=== PATIENT | male | born 1975 | race Caucasian/White ===

== ENCOUNTER 2024-12-26 13:33 | Inpatient (IN) | payer SELFPAY ==
[~2024-12-26 13:33] MED LIST: Iopamidol 370 76% 100 ML VIAL ONE
[2024-12-26] MEDS ORDERED: Heparin 10,000 UNITS/ 10 ML VIAL ONE (14:04)
[2024-12-26] MEDS ORDERED: TICAGRELOR 90 MG TABLET ONE (15:23)
[2024-12-26] MEDS: TICAGRELOR 90 MG TABLET PO SCH (21:25)
[2024-12-26] MEDS: PNEUMOC 20-VAL CONJ-DIP CRM/PF 0.5 ML SYRINGE IM ONE (21:25)
[2024-12-26] MEDS: Enoxaparin 100 MG (1 mL) SYRINGE SC SCH (21:25)
[2024-12-26] MEDS: FLU (Fluarix Triv) 25-26 (6MOS UP)/PF 45 MCG/0.5 ML Syringe IM ONE (21:28)
[2024-12-26] MEDS: Ondansetron PF 4 MG/2 ML Vial IVP PRN (21:35)
[2024-12-27 03:35] LABS: #Basophils 0.05 10x3/uL (0.0-0.2); #Eosinophils 0.03 10x3/uL (0.0-0.7); #Monocytes 1.24 10x3/uL (0.11-0.59); #Neutrophils 9.31 10x3/uL (1.40-6.50); %Basophils 0.4 % (0.0-1.0); %Eosinophils 0.2 % (0.0-10.0); %Lymphocytes 18.2 % (21.0-51.0); %Monocytes 9.5 % (0.0-10.0); %Neutrophils 71.3 % (42.0-75.0); Hematocrit 46.9 % (42.0-52.0); Hemoglobin 15.5 g/dL (14.0-18.0); Mean Corpuscular Hemoglobin 28.1 pg (27.0-31.0); Mean Corpuscular Volume 85.0 fL (78.0-98.0); Platelet Count 287 10x3/uL (130-400); Red Blood Cell (RBC) Count 5.52 mill/uL (4.70-6.10); White Blood Cell (WBC) Count 13.06 10x3/uL (4.8-10.8)
[2024-12-27 03:58] LABS: ALT (SGPT) 87 U/L (Less than 45); AST (SGOT) 572 U/L (11-34); Albumin 3.7 g/dL (3.1-4.5); Alkaline Phosphatase 74 U/L (40-110); Anion Gap 15 mmol/L (10-20); BUN (Urea Nitrogen) 17 mg/dL (8.9-20.6); Bilirubin, Total 0.9 mg/dL (0.3-1.2); Calc. Creatinine Clearance 122 mL/min (70-130); Calcium 9.3 mg/dL (7.8-10.44); Carbon Dioxide 23 mmol/L (22-29); Cardiac Risk 4.7 (Less than 4.5); Chloride 106 mmol/L (98-107); Cholesterol 185 mg/dl (< 200 Desired); Globulin 3.3 g/dL (2.4-3.5); Glucose 108 mg/dL (70-105); HDL Cholesterol 39 mg/dL (>60 Neg Risk); LDL Cholesterol, Calculated 126 mg/dL; Potassium 3.9 mmol/L (3.5-5.1); Sodium 140 mmol/L (136-145); Triglycerides 98 mg/dL (Less than 150)
[2024-12-27] MEDS: Nitroglycerin 0.4 MG TAB (25 Tab Bottle) SL PRN (04:59)
[2024-12-27 05:59] LABS: Magnesium 2.0 mg/dL (1.6-2.6)
[2024-12-27] MEDS ORDERED: Heparin 10,000 UNITS/ 10 ML VIAL SLOW IVP SCH ×2 (06:30)
[2024-12-27] MEDS: Aspirin 81 mg Enteric Coated Tablet PO SCH (10:21)
[2024-12-27] MEDS: Spironolactone 25 MG TAB PO SCH (10:21)
[2024-12-27] MEDS: Lisinopril 2.5 MG TAB PO SCH (14:26)
[2024-12-28 05:22] VITALS: BMI 34.9
[2024-12-28] MEDS: Amiodarone 150 MG, Admixture Fee 1 EACH in Dextrose 5% in Water 100 ML IVPB SCH (16:22)
[2024-12-29 03:57] LABS: #Basophils 0.03 10x3/uL (0.0-0.2); #Eosinophils 0.21 10x3/uL (0.0-0.7); #Monocytes 1.07 10x3/uL (0.11-0.59); #Neutrophils 6.16 10x3/uL (1.40-6.50); %Basophils 0.3 % (0.0-1.0); %Eosinophils 2.3 % (0.0-10.0); %Lymphocytes 17.9 % (21.0-51.0); %Monocytes 11.7 % (0.0-10.0); %Neutrophils 67.5 % (42.0-75.0); Hematocrit 40.7 % (42.0-52.0); Hemoglobin 13.6 g/dL (14.0-18.0); Mean Corpuscular Hemoglobin 28.4 pg (27.0-31.0); Mean Corpuscular Volume 85.0 fL (78.0-98.0); Platelet Count 216 10x3/uL (130-400); Red Blood Cell (RBC) Count 4.79 mill/uL (4.70-6.10); White Blood Cell (WBC) Count 9.14 10x3/uL (4.8-10.8)
[2024-12-29 04:17] LABS: Anion Gap 11 mmol/L (10-20); BUN (Urea Nitrogen) 12 mg/dL (8.9-20.6); Calc. Creatinine Clearance 153 mL/min (70-130); Calcium 8.5 mg/dL (7.8-10.44); Carbon Dioxide 23 mmol/L (22-29); Chloride 110 mmol/L (98-107); Glucose 77 mg/dL (70-105); Potassium 3.8 mmol/L (3.5-5.1); Sodium 140 mmol/L (136-145)
[2024-12-29 04:18] LABS: ALT (SGPT) 38 U/L (Less than 45); AST (SGOT) 108 U/L (11-34); Albumin 3.1 g/dL (3.1-4.5); Alkaline Phosphatase 76 U/L (40-110); Bilirubin, Direct 0.4 mg/dL (0.1-0.3); Bilirubin, Total 1.1 mg/dL (0.3-1.2)
[2024-12-30 10:47] LABS: Anion Gap 13 mmol/L (10-20); BUN (Urea Nitrogen) 12 mg/dL (8.9-20.6); Calc. Creatinine Clearance 136 mL/min (70-130); Calcium 8.9 mg/dL (7.8-10.44); Carbon Dioxide 21 mmol/L (22-29); Chloride 108 mmol/L (98-107); Glucose 93 mg/dL (70-105); Magnesium 1.9 mg/dL (1.6-2.6); Potassium 3.7 mmol/L (3.5-5.1); Sodium 138 mmol/L (136-145)
[2024-12-30] MEDS: Magnesium 2 GM/50 ML(in water) 2 GM in Premix 1 BAG IVPB SCH (15:34)
[2024-12-30] MEDS: Amiodarone 200 MG TAB PO SCH (20:13)
[2024-12-30] MEDS: Pantoprazole 40 MG DR.TAB PO SCH (20:13)
[2024-12-30] MEDS: Metoprolol Succinate XL 25 MG ER.TAB PO SCH (20:14)
[2024-12-31 05:03] LABS: #Basophils 0.04 10x3/uL (0.0-0.2); #Eosinophils 0.22 10x3/uL (0.0-0.7); #Monocytes 1.35 10x3/uL (0.11-0.59); #Neutrophils 7.64 10x3/uL (1.40-6.50); %Basophils 0.4 % (0.0-1.0); %Eosinophils 2.0 % (0.0-10.0); %Lymphocytes 14.0 % (21.0-51.0); %Monocytes 12.5 % (0.0-10.0); %Neutrophils 70.7 % (42.0-75.0); Hematocrit 42.5 % (42.0-52.0); Hemoglobin 14.3 g/dL (14.0-18.0); Mean Corpuscular Hemoglobin 28.9 pg (27.0-31.0); Mean Corpuscular Volume 86.0 fL (78.0-98.0); Platelet Count 238 10x3/uL (130-400); Red Blood Cell (RBC) Count 4.94 mill/uL (4.70-6.10); White Blood Cell (WBC) Count 10.80 10x3/uL (4.8-10.8)
[2024-12-31 05:25] LABS: ALT (SGPT) 43 U/L (Less than 45); AST (SGOT) 46 U/L (11-34); Albumin 3.5 g/dL (3.1-4.5); Alkaline Phosphatase 83 U/L (40-110); Anion Gap 17 mmol/L (10-20); BUN (Urea Nitrogen) 11 mg/dL (8.9-20.6); Bilirubin, Total 1.2 mg/dL (0.3-1.2); Calc. Creatinine Clearance 138 mL/min (70-130); Calcium 8.8 mg/dL (7.8-10.44); Carbon Dioxide 18 mmol/L (22-29); Chloride 107 mmol/L (98-107); Globulin 3.4 g/dL (2.4-3.5); Glucose 75 mg/dL (70-105); Magnesium 2.1 mg/dL (1.6-2.6); Potassium 3.9 mmol/L (3.5-5.1); Sodium 138 mmol/L (136-145)
[2024-12-31] MEDS: Metoprolol Succinate XL 25 MG ER.TAB PO SCH (08:07)
[2024-12-31] MEDS: Losartan 25 MG TAB PO SCH (08:07)
[2024-12-31] MEDS: Communication Order-Pharmacy FS SCH (21:20)
[2025-01-01 09:56] LABS: Anion Gap 15 mmol/L (10-20); BUN (Urea Nitrogen) 11 mg/dL (8.9-20.6); Calc. Creatinine Clearance 133 mL/min (70-130); Calcium 9.4 mg/dL (7.8-10.44); Carbon Dioxide 21 mmol/L (22-29); Chloride 106 mmol/L (98-107); Glucose 81 mg/dL (70-105); Potassium 4.0 mmol/L (3.5-5.1); Sodium 138 mmol/L (136-145)
[2025-01-01] MEDS ORDERED: Lidocaine 1% (PF) 30 ML VIAL ONE (09:59)
[2025-01-01] MEDS ORDERED: Nitroglycerin 50 MG/250 ML BOT 250 ML ONE (09:59)
[2025-01-01] MEDS ORDERED: Heparin 10,000 UNITS/ 10 ML VIAL ONE (09:59)
[2025-01-01] MEDS ORDERED: Ondansetron PF 4 MG/2 ML Vial ONE (11:20)
[2025-01-01] MEDS ORDERED: DOPamine 400 MG/D5W 250 ML 0 ML ONE (11:21)
[2025-01-01] MEDS ORDERED: Dextrose 50% Abboject 50 ML SYRINGE ONE (11:24)
[2025-01-01] MEDS ORDERED: Iopamidol 370 76% 100 ML VIAL ONE (13:49)
[2025-01-01 14:43] VITALS: BP 92/54; TEMP 98.4
[2025-01-01] MEDS ORDERED: Furosemide 40 MG (4 mL) VIAL SLOW IVP SCH (18:30)
[2025-01-01] MEDS ORDERED: EPINEPHrine 1 MG/10 ML Abboject SYRINGE ONE (18:33)
[2025-01-01] MEDS ORDERED: Sodium Bicarb 50 MEQ/50 ML Abboject 8.4% SYRINGE ONE (18:33)
[2025-01-01] MEDS ORDERED: Calcium Chloride 1 GM/10 ML Abboject SYRINGE ONE (18:33)
[2025-01-01] MEDS ORDERED: Magnesium 5 GM/10 ML Abboject SYRINGE ONE (18:33)
[2025-01-01] MEDS ORDERED: Norepinephrine 8 MG/0.9% NS 250 ML IVPB SCH (19:00)
[2025-01-01] MEDS ORDERED: NOREPINEPHRINE 8 MG/250 ML-D5W 250 ML IVPB SCH (19:00)
== END 2025-01-01 19:04 | disposition expired | DRG 321 ==
LOC: CCL 13:33 → CCU 16:21 → 2NO 12-29 08:10 → CCU 01-01 18:45
PROVIDERS: ADMIT Internal Medicine Cardiovascular Disease; ATTEND Internal Medicine
PROC: 4A023N7 Measurement of Cardiac Sampling and Pressure, Left Heart, Percutaneous Approach (ICD-10-PCS; 2024-12-26)
PROC: B2111ZZ Fluoroscopy of Multiple Coronary Arteries using Low Osmolar Contrast (ICD-10-PCS; 2024-12-26)
PROC: B2151ZZ Fluoroscopy of Left Heart using Low Osmolar Contrast (ICD-10-PCS; 2024-12-26)
PROC: B240ZZ3 Ultrasonography of Single Coronary Artery, Intravascular (ICD-10-PCS; 2024-12-26)
PROC: 3E02340 Introduction of Influenza Vaccine into Muscle, Percutaneous Approach (ICD-10-PCS; 2024-12-26)
PROC: 3E0234Z Introduction of Serum, Toxoid and Vaccine into Muscle, Percutaneous Approach (ICD-10-PCS; 2024-12-26)
PROC: 027136Z Dilation of Coronary Artery, Two Arteries with Three Drug-eluting Intraluminal Devices, Percutaneous Approach (ICD-10-PCS; 2024-12-26)
PROC: 3E033XZ Introduction of Vasopressor into Peripheral Vein, Percutaneous Approach (ICD-10-PCS; principal; 2025-01-01)
PROC: 5A2204Z Restoration of Cardiac Rhythm, Single (ICD-10-PCS; 2025-01-01)
PROC: 5A12012 Performance of Cardiac Output, Single, Manual (ICD-10-PCS; 2025-01-01)
PROC: 0BH17EZ Insertion of Endotracheal Airway into Trachea, Via Natural or Artificial Opening (ICD-10-PCS; 2025-01-01)
PROC: 4A023N7 Measurement of Cardiac Sampling and Pressure, Left Heart, Percutaneous Approach (ICD-10-PCS; 2025-01-01)
PROC: B2111ZZ Fluoroscopy of Multiple Coronary Arteries using Low Osmolar Contrast (ICD-10-PCS; 2025-01-01)
PROC: B2151ZZ Fluoroscopy of Left Heart using Low Osmolar Contrast (ICD-10-PCS; 2025-01-01)
DX: I97.190 Other postprocedural cardiac functional disturbances following cardiac surgery (principal); I21.A9 Other myocardial infarction type; T82.855A Stenosis of coronary artery stent, initial encounter; T82.867A Thrombosis due to cardiac prosthetic devices, implants and grafts, initial encounter; I50.22 Chronic systolic (congestive) heart failure; I47.19 Other supraventricular tachycardia; I13.0 Hypertensive heart and chronic kidney disease with heart failure and stage 1 through stage 4 chronic kidney disease, or unspecified chronic kidney disease; N50.89 Other specified disorders of the male genital organs; K40.90 Unilateral inguinal hernia, without obstruction or gangrene, not specified as recurrent; Z23 Encounter for immunization; I25.10 Atherosclerotic heart disease of native coronary artery without angina pectoris; Z79.899 Other long term (current) drug therapy; Z79.82 Long term (current) use of aspirin; G47.33 Obstructive sleep apnea (adult) (pediatric); Z88.0 Allergy status to penicillin; R57.0 Cardiogenic shock; Z68.33 Body mass index [BMI] 33.0-33.9, adult; I48.91 Unspecified atrial fibrillation; R06.03 Acute respiratory distress; N50.3 Cyst of epididymis; E66.9 Obesity, unspecified; Z87.891 Personal history of nicotine dependence; I25.5 Ischemic cardiomyopathy; I45.4 Nonspecific intraventricular block; I95.89 Other hypotension; Y84.0 Cardiac catheterization as the cause of abnormal reaction of the patient, or of later complication, without mention of misadventure at the time of the procedure; R09.02 Hypoxemia; Z91.141 Patient's other noncompliance with medication regimen due to financial hardship; N18.2 Chronic kidney disease, stage 2 (mild); I25.2 Old myocardial infarction; I46.9 Cardiac arrest, cause unspecified; R79.89 Other specified abnormal findings of blood chemistry; I49.01 Ventricular fibrillation
CPT/HCPCS: 36415; 36416; 71045; 76870; 80048; 80053; 80061; 80076; 83735; 84484; 85025; 85347; 85730; 90471; 90656; 90677; 92929; 92941; 92978; 92979; 93005; 93010; 93306; 93458; 93798; 93976; C1753; C1757; C1769; C1874; C1887; C1894; C9601; C9606; G0009; J0165; J0282; J0461; J1265; J1644; J1650; J2003; J2250; J2272; J2405; J3246; J3475; J7030; J7070; J7999; Q9957; Q9967